=== PATIENT | male | born 1965 ===

== ENCOUNTER 2021-12-12 19:06 | Emergency (ER) | payer BC ==
[2021-12-12] MEDS ORDERED: Diazepam 5 MG Tab PO STA (19:59)
[2021-12-12] MEDS ORDERED: Dexamethasone 10 MG/ML SDV IM STA (19:59)
== END 2021-12-12 20:44 | disposition home or self-care (01) ==
LOC: MW.ED 19:06
DX: S39.012A Strain of muscle, fascia and tendon of lower back, initial encounter (principal); I10 Essential (primary) hypertension; Z79.899 Other long term (current) drug therapy
CPT/HCPCS: 96372; 99283; A9270; J1100